=== PATIENT | male | born 1960 | race Caucasian/White ===

== ENCOUNTER 2020-05-10 14:00 | Emergency (ER) | payer SELFPAY ==
--- NOTE | 2020-05-10 | XR_ITS ---
EXAMINATION: XR CHEST CLINICAL INFORMATION: Fall COMPARISON: None TECHNIQUE: 2 views of the chest were obtained. FINDINGS: The cardiac and mediastinal contours are normal. The lungs are clear. There is no pleural effusion or pneumothorax. There are mild degenerative changes of the spine. No fracture is seen. IMPRESSION: No evidence for acute disease in the chest.
[2020-05-10 15:15] VITALS: BP 164/77; PULSE 87; RESP 18; TEMP 37.2; O2SAT 96; BMI 32.5
== END 2020-05-11 03:45 | disposition left against medical advice (07) ==
LOC: HO.ED 20:56
PROVIDERS: Emergency Provider Internal Medicine
DX: R07.89 Other chest pain (principal)
CPT/HCPCS: 71046; 99282; 99283

== ENCOUNTER → 2020-05-11 08:21 | Outpatient (BNVA) | payer OTHER, SELFPAY | PROVIDERS: Visit Provider Physician Assistant | DX: Z76.89 Persons encountering health services in other specified circumstances (principal) ==

== ENCOUNTER → 2025-02-18 08:19 | Outpatient (BNVA) | payer OTHER, SELFPAY | PROVIDERS: Visit Provider Physician Assistant | DX: L23.7 Allergic contact dermatitis due to plants, except food (principal) | CPT/HCPCS: 99203 ==